=== PATIENT | female | born 1990 | race Caucasian/White ===

== ENCOUNTER 2018-11-16 22:00 | Inpatient (IN) | payer BC ==
[2018-11-16] MEDS ORDERED: Lactated Ringer's 1,000 ML IV ONE ×2 (22:23→22:25)
[2018-11-16] MEDS ORDERED: Oxytocin 30 UNIT in NS 500 ml 30 UNITS/500 ML BAG IV ONE (22:26)
[2018-11-16] MEDS ORDERED: OXYTOCIN/0.9 % NS 20 UNIT/1,000 ML BAG IV ONE (22:26)
[2018-11-16 22:27] VITALS: BMI 27.4
[2018-11-16 22:50] VITALS: O2SAT 99
[2018-11-16 22:53] LABS: BASO # 0.1 K/uL (0.0-0.2); BASO % 0.7 % (0.0-2.0); EOS # 0.1 K/uL (0.0-0.7); EOS % 0.8 % (0.0-4.0); HEMOGLOBIN 11.9 g/dL (12.0-16.0); LYMPH % 19.7 % (20.0-40.0); MEAN CELL VOLUME 78.7 fl (81.0-99.0); MEAN CORPUSCULAR HEMOGLOBIN 25.7 pg (27.0-31.0); MEAN CORPUSCULAR HGB CONC 32.6 g/dL (33.0-37.0); MEAN PLATELET VOLUME 9.2 fl (7.2-11.7); MONO # 0.6 K/uL (0.0-0.8); MONO % 5.6 % (0.0-10.0); NEUT # 7.3 K/uL (1.8-7.0); NEUT % 73.2 % (50.0-75.0); RBC 4.63 Mil/uL (3.80-5.20); RED CELL DISTRIBUTION WIDTH 20.3 % (11.5-14.5)
[2018-11-16] MEDS ORDERED: Fentanyl/Bupivacaine HCl 250 ML EPI ONE (22:58)
[2018-11-16] MEDS ORDERED: Bupivacaine HCl 0.5% PF (30 ml) Inj ONE (23:01)
[2018-11-17] MEDS ORDERED: Benzocaine/Menthol SPRAY TOP PRN ×4 (02:39→08:52)
[2018-11-17] MEDS ORDERED: Oxycodone/Acetaminophen 5/325 mg Tab PO PRN ×4 (02:39→08:52)
--- NOTE | 2018-11-17 02:48 | OBHP ---
Datetime: 11/16/2018 23:03 IP Adm Impression: Term, intrauterine ; Active labor IP Admit Plan: Admit to unit; Initiate labor protocol Admit Comment, IP Provider: Pt is a 28 yo F EGA of 39.6wks RODRICK 11/17/18 based on LMP 02/10/18 and 11wk U/S done 05/03/18. Pt is here for contractions since 5pm 1-2 minutes apart. Also reports red m ucous discharge. Denies vaginal bleeding or LOF. Reports good movement. Denies fever, chills, h eadaches, blurry vision, SOB, chest pain, dizziness, diarrhea, constipation, or dysuria. All other systems reviewed and negative Provider: Dr. Jay PMHx: Denies Meds: PNV FMHx: Mom- cardiac problems Allergies: NKDA SurgHx: Denies SOCHx: Denies EtOH, tobacco, or drug use OBGYN: No complications with , No DM or HTN in , Last pap 04/24/18 No hx of STD's, 2 Labs: Rubella- Immune, ABO: AB +, AB neg, GBS neg, Hep B neg, HIV neg, RPR non reactive, GC/CHL un known, TDAP 08/29/18 GEN: NAD HEENT: NCAT, EOMI RESP: CTA, no wheezes, rales, or rhonchi CV: RRR, No m/r/g ABD: Gravid, Soft, nontender to palpation LE: no edema Assessment Pt is a 28 yo F EGA of 39.6wks RODRICK 11/17/18 based on LMP 02/10/18 and 11wk U/S done 05/03/18. Pt is here for contractions since 5pm Plan: -Admit to L _ D -Initiate Labor protocol -IVF's, Pitocin -Monitor heart tracing 150's, moderate variability, 15x15 accelerations, no decels -Monitor VS- BP 99/66- fluids -Bimanual 5-6cm/100%/-1 Case reviewed and discussed with attending Evelin Cristobal PGY1 The patient was seen with the resident I agree with the note Extremities - PN: Normal Abdomen - PN: Normal Lungs - PN: Normal Heart - PN: Normal HEENT - PN: Normal General - PN: Normal FHR - Baseline A Provider: 150's Contraction Comments Provider: Q 1-2 mins Comments, ACOG Physical Exam: GEN: NAD HEENT: NCAT, EOMI RESP: CTA, no wheezes, rales, or rhonchi CV: RRR, No m/r/g ABD: Gravid, Soft, nontender to palpation LE: no edema Monitor FHR tracing 150's, moderate variability, 15x15 accels, no decels Bimanual 5-6cm/ 100%/ -1 IP Hx Assessment: The History has been Reviewed and is Current EGA AdmitDate IP: 39.6 Vital Signs Provider: Reviewed Vital Signs Provider Details: BP 99/60 IP Chief Complaint: Uterine contractions NICHD Variability Prov Fetus A: Moderate 6-25bpm NICHD Accel Fetus A IP Provider: 15X15 FHR Category Provider Fetus A: Category I NICHD Decel Fetus A IP Provider: None Dilatation, Provider: 5-6 Effacement, Provider: 100% Station, Provider: -1
--- NOTE | 2018-11-17 02:49 | OBDS ---
DELIVERY PERSONNEL Delivery Doctor: Lacy Jain MD Piano Mechanic Apprentice: Leona Cheek RN Anesthesiologist: Isaias Resident: LALA Cristobal MATERNAL INFORMATION Delivery Anesthesia: Epidural Medications in Delivery: Oxytocin Placenta Cultured: No Maternal Complications: None Provider Comments: Delivered a live baby boy at 2:22 AM the baby was bulb suctioned on the perineum the transfer to the maternal chest. The cord was clamped and cut 3 vessels noted. Cord bloods with was obtained and sent to the lab. Placenta was delivered at 2:25 AM intact, the estimated blood loss was 100 cc. There were no vaginal lacerations the mother tolerated the procedure well and the baby went to the well baby nursery with Apgars of 9/9 LABOR SUMMARY EDC: 11/17/2018 00:00 No. Babies in Womb: 1 Attempted: No Labor Anesthesia: Epidural LABOR INFORMATION Reason for Induction: Not Applicable Onset of Labor: 11/16/2018 17:00 Oxytocin: N/A Group B Beta Strep: Negative Steroids Given: None Reason Steroids Not Administered: Not Applicable MEMBRANES Membranes Rupture Method: Spontaneous Rupture of Membranes: 11/16/2018 23:20 Length of Rupture (hrs): 3.18 Amniotic Fluid Color: Light Meconium Amniotic Fluid Amount: Small Amniotic Fluid Odor: Normal STAGES OF LABOR Stage 3 hrs: 0 Stage 3 min: 4 Total Time in Labor hrs: 9 Total Time in Labor min: 35 VAGINAL DELIVERY Episiotomy: None Laceration Extension: N/A Laceration Type: None Laceration Repair: Not Applicable Initial Vag Sponge Count: 5 Final Vag Sponge Count: 5 Initial Vag Sharps Count: 0 Final Vag Sharps Count: 0 Sponge Count Correct: Yes Sharps Count Correct: N/A BABY A INFORMATION Delivery Date/Time: 11/17/2018 02:31 Method of Delivery: Vaginal Born in Route : No : N/A Forceps: N/A Vacuum Extraction: N/A Shoulder Dystocia : No SHOULDER DYSTOCIA BABY A Delivery Date/Time: 11/17/2018 02:31 PRESENTATION/POSITION BABY A Presentation: Cephalic Cephalic Presentation: Vertex PLACENTA INFORMATION BABY A Placenta Delivery Time : 11/17/2018 02:35 Placenta Method of Delivery: Spontaneous Placenta Status: Delivered SCORES BABY A Heart Rate 1 min: >100 bpm Resp Effort 1 min: Good Cry Reflex Irritability 1 min: Cough or Sneeze or Pulls Away Muscle Tone 1 min: Active Motion Color 1 min: Body [place], Extremities Blue Resuscitation Effort 1 min: Tactile Stimulation SCORE 1 MIN: 9 Heart Rate 5 min: >100 bpm Resp Effort 5 min: Good Cry Reflex Irritability 5 min: Cough or Sneeze or Pulls Away Muscle Tone 5 min: Active Motion Color 5 min: Body [place], Extremities Blue Resuscitation Effort 5 min: N/A SCORE 5 MIN: 9 INFANT INFORMATION BABY A Gestational Age at Delivery: 40.0 Gestational Status: Term Infant Outcome : Liveborn Condition : Stable Infant Sex: Male IDENTIFICATION/MEDS BABY A ID Band Number: [id number] ID Band Location: Left Leg; Left Arm CORD INFORMATION BABY A No. Cord Vessels: 3 Nuchal Cord : Around Neck x1, Loose Cord Blood Taken: Yes Infant Suction: None
[2018-11-17] MEDS ORDERED: Multivitamin With Minerals Tab PO SCH ×3 (09:00)
[2018-11-17] MEDS: Multivitamin With Minerals Tab PO SCH (09:00)
[2018-11-18 07:18] LABS: HEMOGLOBIN 10.8 g/dL (12.0-16.0); MEAN CELL VOLUME 79.7 fl (81.0-99.0); MEAN CORPUSCULAR HEMOGLOBIN 26.3 pg (27.0-31.0); RBC 4.11 Mil/uL (3.80-5.20); WHITE BLOOD COUNT 8.3 K/uL (4.8-10.8)
[2018-11-18] MEDS: Multivitamin With Minerals Tab PO SCH (09:13)
--- NOTE | 2018-11-18 12:02 | OBPPN ---
Datetime: 11/18/2018 12:00 PP Pain Prov: Within normal limits PP Nausea Prov: Denies PP Flatus Prov: Yes PP Breasts Prov: Not Done PP Heart Prov: Normal PP Lungs Prov: Normal PP Abdomen/Uterus Prov: Normal PP Lochia Prov: Not Done PP Vulva/Perineum Prov: Not Done PP CVA Tenderness Prov: Normal PP Extremities Prov: Normal PP Progress Prov: Normal PP Impression Prov: Normal progression PP Plan Prov: Discharge PP Progress Note Prov: Patient doing well ambulating tolerating diet pain well controlled Vital signs stable afebrile Uterus firm below the umbilicus Extremities no Homans day #1 Patient desires early discharge Motrin as needed Informed consent obtained for circumcision discussed risk benefits alternatives to the procedure p atient agrees to plan of care Vital Signs Provider PP: Reviewed
--- NOTE | 2018-11-18 12:05 | OBDCSUM ---
Datetime: 11/18/2018 12:01 Discharged to, Provider: Home Follow up at, Provider: JOSE Montero Instr Activity: Normal activity Disch Instr Diet: Regular Discharge Instructions, Provider: Routine instructions given Discharge Diagnosis, Provider: Term Delivered Follow up in weeks, Provider: 6 weeks Disch Referrals: None Contraception discussed, Prov: Yes Disch Activity Restrictions: Nothing in vagina - [place], tampons, douche Discharge Comment, Provider: Patient cleared for discharge Contraception after Delivery: Undecided
[2018-11-18 22:01] VITALS: BP 106/60; PULSE 81; RESP 18; TEMP 97.9
== END 2018-11-18 18:00 | disposition home or self-care (01) | DRG 807 ==
LOC: H.EROB2 22:00 → H.L&D 22:23 → H.OB/GYN 11-17 08:15
PROVIDERS: ADMIT Obstetrics & Gynecology Gynecology; ATTEND Obstetrics & Gynecology Gynecology
PROC: 4A1HXCZ Monitoring of Products of Conception, Cardiac Rate, External Approach (ICD-10-PCS; 2018-11-16)
PROC: 10E0XZZ Delivery of Products of Conception, External Approach (ICD-10-PCS; principal; 2018-11-17)
DX: O69.81X0 Labor and delivery complicated by cord around neck, without compression, not applicable or unspecified (principal); Z37.0 Single live birth; Z3A.39 39 weeks gestation of pregnancy